=== PATIENT | female | born 1965 | race Caucasian/White ===

== ENCOUNTER 2021-02-15 10:39 | Day surgery (SDC) | payer MEDICARE ==
[~2021-02-15] VITALS: Ht 170.2 cm; Wt 58.0 kg
[~2021-02-15 10:39] MED LIST: ATOR1TAB21; LEVE750T5; LR 1,000 ML IV ONE; TOPI200T7
[2021-02-15] MEDS ORDERED: ONDANSETRON 4MG/2ML VIAL As Ordered ONE (12:34)
[2021-02-15] MEDS ORDERED: ROCURONIUM BROMIDE 50 MG/5 ML VIAL As Ordered ONE (12:34)
[2021-02-15] MEDS ORDERED: propofoL 200 MG/20 ML VIAL As Ordered ONE ×2 (12:34→12:38)
[2021-02-15] MEDS ORDERED: dexameTHASONE 4 MG/ML 1ML VIAL (J1100 PER 1MG) As Ordered ONE (12:34)
[2021-02-15] MEDS ORDERED: fentaNYL 250 MCG/5 ML INJECTION (J3010) As Ordered ONE (12:34)
[2021-02-15] MEDS ORDERED: MIDAZOLAM INJ 2MG/2ML VIAL (J2250 PER 1MG) As Ordered ONE (12:34)
[2021-02-15] MEDS ORDERED: LIDOCAINE 2% 100MG/5ML SDV (FOR ANES.) As Ordered ONE (12:34)
[2021-02-15] MEDS ORDERED: LIDOCAINE W/EPINEPHRINE 1% 20ML VIAL As Ordered ONE (12:42)
[2021-02-15] MEDS ORDERED: PHENYLephrine 500MCG 5ML (100MCG/ML) SYRINGE As Ordered ONE (13:49)
[2021-02-15] MEDS ORDERED: ePHEDrine SULFATE 25 MG/5 ML(5MG/ML) SYRINGE As Ordered ONE (13:49)
[2021-02-15] MEDS ORDERED: SUGAMMADEX SODIUM 500 MG/5 ML VIAL (BRIDION) As Ordered ONE (13:50)
[2021-02-15] MEDS ORDERED: LR 1,000 ML IV SCH (15:00)
[2021-02-15] MEDS ORDERED: ONDANSETRON 4MG/2ML VIAL IV PRN (15:00)
[2021-02-15] MEDS ORDERED: fentaNYL 100 MCG/2 ML INJECTION (J3010) IV PRN (15:00)
[2021-02-15] MEDS ORDERED: oxyCODONE 5MG TAB PO PRN (15:00)
[2021-02-15 16:10] VITALS: BP 108/56
--- NOTE | 2021-02-16 11:53 | RO ---
OPERATIVE NOTE DATE OF OPERATION: 02/15/2021 PREOPERATIVE DIAGNOSIS: Nonrestorable teeth. POSTOPERATIVE DIAGNOSIS: Nonrestorable teeth. PROCEDURE PERFORMED: Extraction of teeth 2, 5, 6, 11, 12, 14, 18, 19, 20, 29, 30, 31. SURGEON: Roman Murdock DMD. RV BODY MECHANIC: ANESTHESIA: General. ESTIMATED BLOOD LOSS: 10 mL. SPECIMEN: Teeth. COMPLICATIONS: None. DESCRIPTION OF PROCEDURE: The rest of this dictation will be completed in [facility].
== END 2021-02-15 16:31 | disposition home or self-care (01) ==
LOC: M SDC 10:39
PROVIDERS: ATTEND Dentist Oral and Maxillofacial Surgery
DX: K02.9 Dental caries, unspecified (principal); E78.49 Other hyperlipidemia; G43.909 Migraine, unspecified, not intractable, without status migrainosus; G40.89 Other seizures; Z79.899 Other long term (current) drug therapy; Z88.0 Allergy status to penicillin
CPT/HCPCS: 41899; 88300; J1100; J2250; J2370; J2405; J3010